=== PATIENT | female | born 1950 | race Caucasian/White ===

== ENCOUNTER 2025-05-05 09:52 | Emergency (ER) | payer MEDICARE, OTHER, SELFPAY ==
--- NOTE | ~2025-05-05 | XR_ITS ---
EXAMINATION: [id number], 05/05/2025 10:15 CDT HISTORY: left anterior lower rib pain-fall- hurt to breath COMPARISON: No comparisons available. Findings: No acute fracture or malalignment. No significant degenerative changes. Soft tissues unremarkable. Impression: No acute fracture or malalignment. Reviewed, dictated and finalized at location P. Impression: No acute fracture or malalignment.
--- NOTE | 2025-05-05 09:54 | ED.WOUNDLAC ---
HPI - Wound/Laceration General Chief Complaint: Wound/Laceration Stated Complaint: fall Time Seen by Provider: 05/05/25 09:54 Source: patient Mode of arrival: ambulatory Limitations: no limitations History of Present Illness HPI narrative: Rita is a 74-year-old female patient presenting to the clinic today with complaints of a fall this morning injuring her left ribs and causing a lip laceration. Incident occurred around 7:00 a.m. this morning when she was wrapped up in a blanket watching the news, was attempting to get up and thinks her legs got caught up in the blanket and she fell on her left side. She reports is no loss of consciousness, headache, or neck pain. States she landed on her left side. It hurts to take a deep breath over the left lower anterior ribs-with tenderness over this area to touch. Rates pain 10/10 on ribs and 5/10 for her lip. Took tramadol at 8:30 a.m. for pain. Related Data Home Medications ?Medication ?Instructions ?Recorded ?Confirmed ?Last Taken ?Type Trulicity WEEKLY 05/05/25 Unknown History atorvastatin 40 mg tablet (Lipitor) 40 mg PO DAILY 05/05/25 Unknown History citalopram BYMOUTH DAILY 05/05/25 Unknown History clopidogrel 75 mg tablet 75 mg PO DAILY 05/05/25 Unknown History hydrochlorothiazide 25 mg tablet 25 mg PO DAILY 05/05/25 Unknown History lorazepam 1 mg tablet (Ativan) 1 mg PO DAILY 05/05/25 Unknown History metoprolol succinate 200 mg 200 mg PO DAILY 05/05/25 Unknown History capsule sprinkle, ext. release 24 hr pantoprazole 40 mg tablet,delayed 40 mg PO QAM 05/05/25 Unknown History release potassium chloride 20 mEq 20 meq PO DAILY 05/05/25 Unknown History tablet,extended release(part/cryst) (Klor-Con M) valsartan 160 mg tablet (Diovan) 160 mg PO DAILY 05/05/25 Unknown History Allergies Allergy/AdvReac Type Severity Reaction Status Date / Time No Known Allergies Allergy Verified 05/05/25 10:15 Review of Systems Review of Systems: Pertinent positives per HPI. Patient denies any fever, chills, rash, headache, visual changes, dizziness, cough, runny nose, sore throat, shortness of breath, chest pain, palpitations, nausea, vomiting, diarrhea, constipation, abdominal pain, or any urinary issues. PMFSH Comments At the time of my signature, I reviewed and agree with the nursing past medical, surgical, social, and family history. There is no relevant family history pertinent to the patient complaint. Exam Narrative: General: Well-developed, well nourished, in no apparent distress Head: Normocephalic, atraumatic Eyes: Pupils equally round and reactive to light bilaterally, EOM intact, sclera and conjunctive clear, no discharge, lids normal Ears: TMs intact and clear, ear canals clear, no drainage, grossly hearing normal. Nose: Nares patent, no discharge, no inflammation, no sinus tenderness. Mouth: Oropharynx without lesions or masses, good dentition, MMM. No loose teeth/dental fractures, 1.5 cm lip laceration to the left upper lip Neck: Supple, trachea midline, no enlargement of anterior or posterior cervical nodes, no thyroid masses or goiter palpable. Chest wall: Even rise and fall of the chest wall with respirations, no bruising or swelling noted to the left ribs, tenderness to palpation over the left lower anterior ribs Cardio: Regular rate and rhythm, s1 and s2 normal, no murmur appreciated. Resp: Clear to auscultation bilaterally anteriorly and posteriorly, no rhonchi, rales, wheezing or rubs Course Course Emergency Course: Portions of this record may have been created with voice recognition software. Level of Care: Express Care Visit Vital Signs Vital signs: Vital Signs Temperature 36.6 C 05/05/25 10:10 Pulse Rate 71 05/05/25 10:10 Respiratory Rate 16 05/05/25 10:10 Blood Pressure 119/78 05/05/25 10:10 Pulse Oximetry 99 05/05/25 10:10 Oxygen Delivery Room Air 05/05/25 10:10 Temperature 36.6 C 05/05/25 10:10 Pulse Rate 71 05/05/25 10:10 Respiratory Rate 16 05/05/25 10:10 Blood Pressure 119/78 05/05/25 10:10 Pulse Oximetry 99 05/05/25 10:10 Oxygen Delivery Room Air 05/05/25 10:10 Vital signs reviewed Procedures Laceration Laceration 1: Date: 05/05/25 Site: lip Side (If applicable): left Size (cm): 1.5 Description: flap and irregular Depth: simple, single layer Local Anesthetic: lidocaine 1% Amount of anesthesia used (mL): 1 Pre-repair: wound explored and irrigated ====== Skin Level ====== Skin layer closed with: vicryl Size (cm): 5-0 Number of sutures: 3 Technique: simple, interrupted ====== Subcutaneous Layer ====== ====== Muscle Layer ====== ====== Tendon Layer ====== Dressing: Verbal consent obtained for laceration repair. Risk and benefits explained and patient voiced understanding. Area was cleansed with sterile saline and a 27 gauge needle was then used to instill (1) ml of 1% lidocaine without epi into the wound edges. Area was prepped and draped using sterile technique. A 5-0 Vicryl suture on a p needle was used to place (3) interrupted sutures bringing the wound edges together- well approximated. Patient tolerated procedure well. Sterile dressing applied. MDM - Wound/Laceration MDM Narrative Medical decision making narrative: At the time of visit patient is resting comfortably on the exam table. Patient appears to be nontoxic. Complaints of a fall this morning injuring her left ribs and causing a lip laceration. Incident occurred around 7:00 a.m. this morning when she was wrapped up in a blanket watching the news, was attempting to get up and thinks her legs got caught up in the blanket and she fell on her left side. She reports is no loss of consciousness, headache, or neck pain. States she landed on her left side. It hurts to take a deep breath over the left lower anterior ribs-with tenderness over this area to touch. Rates pain 10/10 on ribs and 5/10 for her lip. Took tramadol at 8:30 a.m. for pain. X-ray the left chest/ribs was ordered. Laceration repair ordered. Diagnostics: X-ray of the left ribs/chest was performed and negative for any acute fracture or malalignment. No sign of pneumothorax Laceration repair: Laceration repair was performed. Risk and benefits were reviewed with the patient she voiced understanding. 3 interrupted Vicryl 5-0 sutures were placed bringing the wound edges of the left upper lip laceration together-well approximate. Patient tolerated well. Plan: I suspect patient has a lip laceration to left upper lip that was repaired in the clinic today placing 3 interrupted sutures. Also has a left rib contusion. Prescription for Augmentin and tramadol was sent to the pharmacy. Offered incentive spirometer and patient declined at this time. Supportive measures were discussed with the patient and they voiced understanding discharge instructions and agrees to treatment plan. Return precautions reviewed Differential Diagnosis Differential diagnosis: Likely laceration, abscess, abrasion and avulsion of skin Discharge Plan Discharge Clinical Impression: Laceration of lip Qualifiers: Encounter type: initial encounter Qualified Code(s): S01.511A - Laceration without foreign body of lip, initial encounter Contusion of rib on left side Qualifiers: Encounter type: initial encounter Qualified Code(s): S29.8XXA - Other specified injuries of thorax, initial encounter Patient Disposition: Home Condition: Stable Instructions: Antibiotic Form, Laceration (ED), Rib Contusion (ED) Additional Instructions: Chest/left rib x-ray negative for any sign of fracture or malalignment. Laceration repair was performed in the clinic today-3 interrupted sutures were placed into the left upper left bringing the wound edges well approximate The sutures will dissolve on their own Keep wound clean and dry May splint the area using pillow, hand, or blanket. May apply ice or heat to the affected area to help alleviate pain Take tramadol and Augmentin as prescribed Watch for signs and symptoms of infection-fever, redness, streaking, swelling, purulent discharge, or increase in pain. Follow up with your PCP in 5-7 days if symptoms persist Patient Language: Amharic Prescriptions: New tramadol 50 mg tablet 50 mg PO Q8H 3 Days Qty: 10 0RF amoxicillin-pot clavulanate 875-125 mg tablet 1 tablet PO Q12H 7 Days Qty: 14 0RF No Action citalopram BYMOUTH DAILY atorvastatin [Lipitor] 40 mg tablet 40 mg PO DAILY lorazepam [Ativan] 1 mg tablet 1 mg PO DAILY Patient Comments: PRN anxiety metoprolol succinate 200 mg capsule,sprinkle,ER 24hr 200 mg PO DAILY pantoprazole 40 mg tablet,delayed release (DR/EC) 40 mg PO QAM clopidogrel 75 mg tablet 75 mg PO DAILY hydrochlorothiazide 25 mg tablet 25 mg PO DAILY potassium chloride [Klor-Con M20] 20 mEq tablet,ER particles/crystals 20 meq PO DAILY Trulicity WEEKLY valsartan [Diovan] 160 mg tablet 160 mg PO DAILY Follow-up/Referrals: UNKNOWN,DOCTOR [Primary Care Provider] Time of Disposition: 10:49 Quality NIHSS Nursing Documentation ED NIHSS nursing documentation: reviewed/agree
[2025-05-05 10:10] VITALS: BP 119/78; PULSE 71; RESP 16; TEMP 36.6; O2SAT 99
== END 2025-05-05 11:00 | disposition home or self-care (01) ==
PROVIDERS: Emergency Provider Nurse Practitioner Family
DX: S01.511A Laceration without foreign body of lip, initial encounter (principal); S29.8XXA Other specified injuries of thorax, initial encounter; W19.XXXA Unspecified fall, initial encounter
CPT/HCPCS: 12011; 71101; 99203; G0463

== ENCOUNTER → 2025-06-04 15:06 | Outpatient (CLI) | payer MEDICARE, OTHER, SELFPAY ==
--- NOTE | ~2025-06-04 | XR_ITS ---
EXAM/PROCEDURE: XR thoracic spine 3V HISTORY: M54.9 - Dorsalgia pain across upper back, years, no injury COMPARISON(S): None. TECHNIQUE: 3 views were obtained. FINDINGS: Vertebral bodies: There are some minimal wedging deformities with a minimally accentuated thoracic kyphosis. Swimmer's view is limited, as the patient is only able to raise one upper extremity. There is degenerative change throughout. Alignment: AP: Normal. Lateral: Normal. There is marked vascular calcification. Right upper quadrant surgical clips. There are multiple surgical clips in the left breast in the right side of the neck. IMPRESSION: No acute findings. Reviewed, dictated and finalized at location A. K GRADER IMPRESSION: No acute findings.
--- NOTE | ~2025-06-04 | XR_ITS ---
XR knee RT 3V 06/04/2025 15:33 Indication: Right knee arthritis Procedure: 3 views right knee Comparison: No prior studies for comparison. Findings: There is severe tricompartment osteoarthritis. No acute fracture identified. There is atherosclerosis. There are coarse calcifications in the suprapatellar bursa. There is heterotopic ossification along the lateral margin of the distal aspect of the femur. These findings may relate to prior trauma. Impression: 1: Severe tricompartment osteoarthritis. 2: Extensive heterotopic ossification distal lateral soft tissues adjacent to the femur. Findings likely relate to previous trauma. 3: Coarse amorphous calcifications suprapatellar bursa of the right knee. Differential diagnosis includes hydroxyapatite deposition disease (most common), synovial osteochondromatosis, tumoral calcinosis and posttraumatic or postinjection calcification. Reviewed, dictated and finalized at location O. GER OF ENGINEERING Impression: 1: Severe tricompartment osteoarthritis. 2: Extensive heterotopic ossification distal lateral soft tissues adjacent to the femur. Findings likely relate to previous trauma. 3: Coarse amorphous calcifications suprapatellar bursa of the right knee. Diff erential diagnosis includes hydroxyapatite deposition disease (most common), sy novial osteochondromatosis, tumoral calcinosis and posttraumatic or postinjecti on calcification.
--- NOTE | ~2025-06-04 | XR_ITS ---
EXAM/PROCEDURE: X-ray 2-3 views of the lumbar spine HISTORY: Pain. Right radiculopathy. COMPARISON: None available. TECHNIQUE: 3 views were obtained. FINDINGS: Vertebral bodies: The height is well maintained. Alignment: AP: There is grade 1 spondylolisthesis of L3 on L4. There is minimal retrolisthesis of L4 on L5. There is evidence of significant degenerative disc disease at these levels. Lateral: Minimal scoliosis convex to the right in the lumbar spine. There is orthopedic hardware with bilateral pedicle screws and Wilburn rods fusing L4-S1. There is degenerative change throughout. There is demineralization. There are multiple 2 calcified granulomata in the spleen, versus less likely the left lung base. IMPRESSION: No acute findings. Other findings as described Reviewed, dictated and finalized at location A. ER OPERATOR
--- NOTE | ~2025-06-04 | XR_ITS ---
EXAMINATION: XR knee LT 3V, 06/04/2025 15:14 [employer]OKER INSTALLER HISTORY: M19.90 - Unspecified osteoarthritis LT knee years, no injury COMPARISON: No comparisons available. Findings: No acute fracture or malalignment. Severe tricompartmental degenerative changes with chondrocalcinosis and small joint effusion Soft tissues unremarkable. Impression: No acute fracture or malalignment. Reviewed, dictated and finalized at location P. ER INSTALLER Impression: No acute fracture or malalignment.
== END ==
LOC: EXPCRAD 15:08
DX: M54.9 Dorsalgia, unspecified (principal); Z98.1 Arthrodesis status; G89.29 Other chronic pain; M19.90 Unspecified osteoarthritis, unspecified site; M25.569 Pain in unspecified knee; M17.11 Unilateral primary osteoarthritis, right knee
CPT/HCPCS: 72072; 72100; 73562